=== PATIENT | male | born 1990 ===

== ENCOUNTER → 2022-07-04 07:59 | Outpatient (CLI) | payer OTHER, SELFPAY ==
[2022-07-04 14:38] LABS: Medtox Non-DOT Urine Drug Scre See Separate Report
== END ==
PROVIDERS: Referring Provider Internal Medicine; Visit Provider Internal Medicine
DX: Z02.1 Encounter for pre-employment examination (principal)
CPT/HCPCS: 81099

== ENCOUNTER → 2022-07-08 11:07 | Outpatient (CLI) | payer OTHER, SELFPAY ==
[2022-07-08 11:34] LABS: Urine Drug Scr, Empl Non-NIDA See Separate Report
== END ==
DX: Z02.1 Encounter for pre-employment examination (principal)
CPT/HCPCS: 81099